=== PATIENT | female | born 1985 | race African-American/Black ===

== ENCOUNTER 2019-11-24 09:29 | Emergency (ER) | payer SELFPAY ==
[~2019-11-24] VITALS: Ht 162.6 cm; Wt 46.7 kg
[2019-11-24] MEDS ORDERED: MORPHINE SULFATE 10 MG/ML VIAL. IV STA ×2 (09:36→11:07)
[2019-11-24] MEDS ORDERED: LIDOCAINE 2% 20 ML VIAL. INH STA (09:36)
[2019-11-24] MEDS ORDERED: ONDANSETRON PF 4 MG/2 ML VIAL. IV ONE (09:45)
[2019-11-24] MEDS ORDERED: IV NORMAL SALINE 1000ML BAG 1,000 ML IV ONE (09:45)
--- NOTE | 2019-11-24 09:45 | PHYS DOC ---
Adult General HPI HPI Patient is a 34 year old female who presents with multiple complaints. The patient states that she's started having chest pain yesterday. The patient also states she's been a cough, fever, runny nose, congestion, bodyaches ongoing for weeks. The patient states she has a history of a pulmonary embolus and stop taking her blood thinners for an unknown reason 4 months ago. Rates her pain as 10 out of 10 in severity and sharp. Review of Systems Review of Systems Constitutional: Reports fever or chills [] Eyes: Denies change in visual acuity, redness, or eye pain [] HENT: Reports nasal congestion and runny nose. Respiratory: Reports cough and shortness of breath. Cardiovascular: No additional information not addressed in HPI [] GI: Denies abdominal pain, nausea, vomiting, bloody stools or diarrhea [] : Denies dysuria or hematuria [] Musculoskeletal: Denies back pain or joint pain [] Integument: Denies rash or skin lesions [] Neurologic: Denies headache, focal weakness or sensory changes [] Endocrine: Denies polyuria or polydipsia [] Complete systems were reviewed and found to be within normal limits, except as documented in this note. Current Medications Current Medications Current Medications Medications (Trade) Dose Ordered Sig/Medhat Start Time Stop Time Status Last Admin Dose Admin Iohexol (Omnipaque 350 Mg/ml) 75 ml 1X ONCE 11/24/19 10:30 11/24/19 10:31 DC 11/24/19 10:46 75 ML Lidocaine HCl 5 ml 1X STAT 11/24/19 09:36 11/24/19 09:48 DC 11/24/19 10:03 5 ML Morphine Sulfate (Morphine Sulfate) 5 mg 1X STAT 11/24/19 11:07 11/24/19 11:13 DC Ondansetron HCl (Zofran) 4 mg 1X ONCE 11/24/19 09:45 11/24/19 09:48 DC 11/24/19 09:53 4 MG Sodium Chloride 1,000 ml @ 1,000 mls/hr 1X ONCE 11/24/19 09:45 11/24/19 10:44 DC 11/24/19 09:52 1,000 MLS/HR Allergies Allergies Allergies Coded Allergies Type Severity Reaction Last Updated Verified enoxaparin Allergy Unknown 11/24/19 Yes Physical Exam Physical Exam Constitutional: Well developed, well nourished, no acute distress, non-toxic appearance. [] HENT: Normocephalic, atraumatic, bilateral external ears normal, oropharynx moist, no oral exudates, nose normal. [] Eyes: PERRLA, EOMI, conjunctiva normal, no discharge. [] Neck: Normal range of motion, no tenderness, supple, no stridor. [] Cardiovascular:Heart rate regular rhythm but tachycardia, no murmur, chest tenderness on palpation to left side of chest. Lungs & Thorax: Bilateral breath sounds clear to auscultation [] Abdomen: Bowel sounds normal, soft, no tenderness, no masses, no pulsatile masses. [] Skin: Warm, dry, no erythema, no rash. [] Neurologic: Alert and oriented X 3, normal motor function, normal sensory function, no focal deficits noted. [] Psychologic: Affect normal, judgement normal, mood normal. [] Current Patient Data Vital Signs Vital Signs Date Time Temp Pulse Resp B/P (MAP) Pulse Ox O2 Delivery O2 Flow Rate FiO2 11/24/19 10:04 99 Room Air 11/24/19 09:54 18 11/24/19 09:43 98.9 110 144/94 (111) 98.9 Lab Values Laboratory Tests Test 11/24/19 09:44 11/24/19 10:48 11/24/19 10:53 White Blood Count 12.9 x10^3/uL (4.0-11.0) H Red Blood Count 4.29 x10^6/uL (3.50-5.40) Hemoglobin 12.4 g/dL (12.0-15.5) Hematocrit 37.8 % (36.0-47.0) Mean Corpuscular Volume 88 fL (79-100) Mean Corpuscular Hemoglobin 29 pg (25-35) Mean Corpuscular Hemoglobin Concent 33 g/dL (31-37) Red Cell Distribution Width 13.8 % (11.5-14.5) Platelet Count 484 x10^3/uL (140-400) H Neutrophils (%) (Auto) 68 % (31-73) Lymphocytes (%) (Auto) 18 % (24-48) L Monocytes (%) (Auto) 13 % (0-9) H Eosinophils (%) (Auto) 0 % (0-3) Basophils (%) (Auto) 1 % (0-3) Neutrophils # (Auto) 8.8 x10^3/uL (1.8-7.7) H Lymphocytes # (Auto) 2.3 x10^3/uL (1.0-4.8) Monocytes # (Auto) 1.7 x10^3/uL (0.0-1.1) H Eosinophils # (Auto) 0.0 x10^3/uL (0.0-0.7) Basophils # (Auto) 0.1 x10^3/uL (0.0-0.2) Prothrombin Time 15.5 SEC (11.7-14.0) H Prothrombin Time INR 1.3 (0.8-1.1) H Activated Partial Thromboplast Time 34 SEC (24-38) Sodium Level 136 mmol/L (136-145) Potassium Level 4.5 mmol/L (3.5-5.1) Chloride Level 103 mmol/L (98-107) Carbon Dioxide Level 24 mmol/L (21-32) Anion Gap 9 (6-14) Blood Urea Nitrogen 8 mg/dL (7-20) Creatinine 0.8 mg/dL (0.6-1.0) Estimated GFR (Cockcroft-Gault) 81.2 BUN/Creatinine Ratio 10 (6-20) Glucose Level 86 mg/dL (70-99) Calcium Level 9.4 mg/dL (8.5-10.1) Magnesium Level 1.9 mg/dL (1.8-2.4) Total Bilirubin 0.4 mg/dL (0.2-1.0) Aspartate Amino Transferase (AST) 16 U/L (15-37) Alanine Aminotransferase (ALT) 19 U/L (14-59) Alkaline Phosphatase 66 U/L (46-116) Troponin I Quantitative < 0.017 ng/mL (0.000-0.055) Total Protein 7.7 g/dL (6.4-8.2) Albumin 2.9 g/dL (3.4-5.0) L Albumin/Globulin Ratio 0.6 (1.0-1.7) L Ethyl Alcohol Level < 10 mg/dL (0-10) Urine Collection Type Unknown Urine Color Mona Urine Clarity Clear Urine pH 5.5 Urine Specific [place] >=1.030 Urine Protein 30 mg/dL (NEG-TRACE) Urine Glucose (UA) Negative mg/dL (NEG) Urine Ketones (Stick) Trace mg/dL (NEG) Urine Blood Trace (NEG) Urine Nitrite Negative (NEG) Urine Bilirubin Negative (NEG) Urine Urobilinogen Dipstick 0.2 mg/dL (0.2 mg/dL) Urine Leukocyte Esterase Small (NEG) Urine RBC 3-5 /HPF (0-2) Urine WBC 1-4 /HPF (0-4) Urine Squamous Epithelial Cells Many /LPF Urine Bacteria Few /HPF (0-FEW) Urine Mucus Marked /LPF Urine Opiates Screen Pos (NEG) Urine Methadone Screen Neg (NEG) Urine Barbiturates Neg (NEG) Urine Phencyclidine Screen Neg (NEG) Urine Amphetamine/Methamphetamine Neg (NEG) Urine Benzodiazepines Screen Neg (NEG) Urine Cocaine Screen Neg (NEG) Urine Cannabinoids Screen Pos (NEG) Urine Ethyl Alcohol Neg (NEG) Influenza Type A Antigen Negative (NEGATIVE) Influenza Type B Antigen Negative (NEGATIVE) POC Urine HCG, Qualitative Hcg negative (Negative) Laboratory Tests 11/24/19 09:44 Laboratory Tests 11/24/19 09:44 EKG EKG EKG interpreted by Dr. Ramos Sinus tachycardia with rate of 101. NO STEMI. Radiology/Procedures Radiology/Procedures [id number] [place] [address] IMAGING REPORT Signed PATIENT: SUDHIR BLACK ACCOUNT: [id number] : 1985 LOCATION: ER AGE: 34 SEX: F EXAM STATUS: PRE ER ORD. PHYSICIAN: ULI MENESES APRN REASON: chest pain, SOA x2 weeks PROCEDURE: CHEST PA & LATERAL CHEST PA LATERAL History: Shortness of air for 2 weeks, chest pain Comparison: None. Findings: 2 views of the chest are submitted. There is infiltrate left lung base, also minimally at the right lung base. There is no significant dependent pleural fluid or pneumothorax. Heart size is within normal limits. Impression: 1. There are left greater than right, bibasilar infiltrates. Electronically signed by: Doris Rhoades MD (11/24/2019 10:29 AM) [id number] DICTATED and SIGNED BY: DORIS RHOADES MD DATE: 11/24/19 1029 [][facility] [address] [place] [address] IMAGING REPORT Signed PATIENT: SUDHIR BLACK RACCOUNT: [id number] : 1985 LOCATION: ER AGE: 34 SEX: F EXAM STATUS: PRE ER ORD. PHYSICIAN: ULI MENESES APRN REASON: tachycardia, CP, SOB, Hx of PE, stopped taking blood thinners PROCEDURE: CT ANGIOGRAPHY CHEST EXAM: CT ANGIOGRAPHY OF THE CHEST WITH AND WITHOUT CONTRAST. HISTORY: Tachycardia, chest pain, shortness of breath. TECHNIQUE: Computed tomographic angiography of the chest was performed before and after the intravenous administration of iodinated contrast. 3-D maximum intensity projections were also performed. One or more of the following individualized dose reduction techniques were utilized for this examination: 1. Automated exposure control. 2. Adjustment of the mA and/or kV according to patient size. 3. Use of iterative reconstruction technique. COMPARISON: None. FINDINGS: Images of the upper abdomen reveal no acute abnormality. Bone windows reveal no suspicious lesions. No pulmonary emboli are identified. There is no aortic dissection or aneurysm. There are airspace infiltrates in both lower lobes inferiorly. There are lesser similar infiltrates in the right middle lobe and left upper lobe. There are scattered debris within the lower lobe bronchi. There is bronchial wall thickening predominantly inferiorly. A left hilar lymph node measures 1.6 x 1.2 cm. A left paraesophageal or inferior hilar node measures 1.6 x 1.6 cm. Subcarinal lymph nodes are also prominent. There is no pleural or pericardial effusion. The heart is not enlarged. IMPRESSION: 1. Basilar predominant multifocal pneumonia as above. Debris within the lower lobe bronchi may reflect uncleared secretions or aspiration. 2. Mediastinal adenopathy is likely reactive in this setting. This could be followed to resolution if there is persistent concern. 3. No pulmonary embolism. Electronically signed by: Ramon Sharpe MD (11/24/2019 10:55 AM) [facility] DICTATED and SIGNED BY: ANA SHARPE MD DATE: 11/24/19 1055 Course & Med Decision Making Course & Med Decision Making Pertinent Labs and Imaging studies reviewed. (See chart for details) Will get CT angio due to history and the tachycardia and chest pain the patient is having. Will also get chest x-ray, labs, Flu test, UA, drug screen, and will also give supportive care. Labs show slightly elevated WBC count at 12.9. Urine has small leukocytes. Will treat for UTI. Imaging shows pneumonia. Will treat with Doxycycline. Dragon Disclaimer Dragon Disclaimer This electronic medical record was generated, in whole or in part, using a voice recognition dictation system. Departure Departure Impression: Primary Impression: Pneumonia Additional Impression: Urinary tract infection Disposition: HOME, SELF-CARE Condition: STABLE Patient Instructions: Pneumonia, Adult, Urinary Tract Infection Additional Instructions: Thank you for visiting [facility]. We appreciate you trusting us with your care. If any additional problems come up don't hesitate to return to visit us. Please follow up with your primary care provider so they can plan additional care if needed and know about the problem that you had. If symptoms worsen come back to the Emergency Department. Any concerning symptoms that start such as chest pain, shortness of air, weakness or numbness on one side of the body, running high fevers or any other concerning symptoms return to the ER. You have been prescribed an antibiotic today to help fight your infection. Please take all of the antibiotic as directed. If after 48 hours the infection is not improving, please return for more care. If the infection worsens, return to ER for additional care. Scripts Doxycycline Hyclate (DOXYCYCLINE HYCLATE) 100 Mg Capsule 1 CAP PO BID for 10 Days, #20 CAP Prov: ULI MENESES APRN 11/24/19 Cephalexin (KEFLEX) 500 Mg Capsule 1 CAP PO BID for 7 Days, #14 CAP 0 Refills Prov: ULI MENESES APRN 11/24/19 Problem Qualifiers Primary Impression: Pneumonia Pneumonia type: due to unspecified organism Laterality: bilateral Lung location: unspecified part of lung Qualified Codes: J18.9 - Pneumonia, unspecified organism Additional Impression: Urinary tract infection Urinary tract infection type: acute cystitis Hematuria presence: without hematuria Qualified Codes: N30.00 - Acute cystitis without hematuria ULI MENESES APRN Nov 24, 2019 09:45
[2019-11-24 09:54] LABS: BASO # 0.1 x10^3/uL (0.0-0.2); BASO % 1 % (0-3); EOS % 0 % (0-3); HEMATOCRIT 37.8 % (36.0-47.0); HEMOGLOBIN 12.4 g/dL (12.0-15.5); LYMPH # 2.3 x10^3/uL (1.0-4.8); LYMPH % 18 % (24-48); MEAN CORPUSCULAR HEMOGLOBIN 29 pg (25-35); MEAN CORPUSCULAR HGB CONC 33 g/dL (31-37); MEAN CORPUSCULAR VOLUME 88 fL (79-100); MONO # 1.7 x10^3/uL (0.0-1.1); MONO % 13 % (0-9); NEUT # 8.8 x10^3/uL (1.8-7.7); NEUT % 68 % (31-73); PLATELET COUNT 484 x10^3/uL (140-400); RED BLOOD COUNT 4.29 x10^6/uL (3.50-5.40); RED CELL DISTRIBUTION WIDTH 13.8 % (11.5-14.5); WHITE BLOOD COUNT 12.9 x10^3/uL (4.0-11.0)
[2019-11-24 10:03] LABS: PROTHROMBIN TIME PATIENT 15.5 SEC (11.7-14.0)
[2019-11-24 10:05] LABS: CALCIUM 9.4 mg/dL (8.5-10.1); CREATININE 0.8 mg/dL (0.6-1.0); GFR 81.2; POTASSIUM 4.5 mmol/L (3.5-5.1)
[2019-11-24 10:10] LABS: ALBUMIN 2.9 g/dL (3.4-5.0); ALBUMIN/GLOBULIN RATIO 0.6 (1.0-1.7); MAGNESIUM 1.9 mg/dL (1.8-2.4); TOTAL BILIRUBIN 0.4 mg/dL (0.2-1.0); TOTAL PROTEIN 7.7 g/dL (6.4-8.2)
[2019-11-24] MEDS ORDERED: IOHEXOL 350 MG/ML 100 ML VIAL. IV ONE (10:30)
--- NOTE | 2019-11-24 10:31 | RAD ---
CHEST PA LATERAL History: Shortness of air for 2 weeks, chest pain Comparison: None. Findings: 2 views of the chest are submitted. There is infiltrate left lung base, also minimally at the right lung base. There is no significant dependent pleural fluid or pneumothorax. Heart size is within normal limits. Impression: 1. There are left greater than right, bibasilar infiltrates. Electronically signed by: Jose Carpenter MD (11/24/2019 10:29 AM) [id number]
--- NOTE | 2019-11-24 10:46 | EKG ---
[facility] [address] [place] [address] Test Date: 2019-11-24 Test Time: 09:34:31 Pat Name: SUDHIR BLACK Department: Room: Gender: F [employer]: : 1985 Requested By: ULI MENESES Order Number: [id number] Reading MD: Measurements Intervals [place] Rate: 100 P: 65 NC: 130 QRS: 62 QRSD: 78 T: 57 QT: 322 QTc: 418 Interpretive Statements SINUS TACHYCARDIA NON SPECIFIC ST-T ABNORMALITY (ELEVATION) OTHERWISE NORMAL ECG No previous ECG available for comparison
--- NOTE | 2019-11-24 10:58 | RAD ---
EXAM: CT ANGIOGRAPHY OF THE CHEST WITH AND WITHOUT CONTRAST. HISTORY: Tachycardia, chest pain, shortness of breath. TECHNIQUE: Computed tomographic angiography of the chest was performed before and after the intravenous administration of iodinated contrast. 3-D maximum intensity projections were also performed. One or more of the following individualized dose reduction techniques were utilized for this examination: 1. Automated exposure control. 2. Adjustment of the mA and/or kV according to patient size. 3. Use of iterative reconstruction technique. COMPARISON: None. FINDINGS: Images of the upper abdomen reveal no acute abnormality. Bone windows reveal no suspicious lesions. No pulmonary emboli are identified. There is no aortic dissection or aneurysm. There are airspace infiltrates in both lower lobes inferiorly. There are lesser similar infiltrates in the right middle lobe and left upper lobe. There are scattered debris within the lower lobe bronchi. There is bronchial wall thickening predominantly inferiorly. A left hilar lymph node measures 1.6 x 1.2 cm. A left paraesophageal or inferior hilar node measures 1.6 x 1.6 cm. Subcarinal lymph nodes are also prominent. There is no pleural or pericardial effusion. The heart is not enlarged. IMPRESSION: 1. Basilar predominant multifocal pneumonia as above. Debris within the lower lobe bronchi may reflect uncleared secretions or aspiration. 2. Mediastinal adenopathy is likely reactive in this setting. This could be followed to resolution if there is persistent concern. 3. No pulmonary embolism. Electronically signed by: Ramon Sharpe MD (11/24/2019 10:55 AM) [facility]
[2019-11-24 11:06] LABS: BILIRUBIN,URINE NEGATIVE (NEG); CLARITY,URINE CLEAR; COLOR,URINE AMBER; NITRITE,URINE NEGATIVE (NEG); PH,URINE 5.5; PROTEIN,URINE 30 mg/dL (NEG-TRACE); UROBILINOGEN,URINE 0.2 mg/dL (0.2 mg/dL)
[2019-11-24 11:12] LABS: BARBITURATES NEG (NEG); BENZODIAZEPINES NEG (NEG); CANNABINOIDS POS (NEG); COCAINE NEG (NEG); METHADONE NEG (NEG); OPIATES POS (NEG); PHENCYCLIDINE NEG (NEG)
[2019-11-24 11:13] LABS: AMPHETAMINE/METHAMPHETAMINE NEG (NEG)
[2019-11-24 11:16] LABS: BACTERIA,URINE FEW /HPF (0-FEW); SQUAMOUS EPITHELIAL CELL,UR MANY /LPF
[2019-11-24 11:28] LABS: INFLUENZA A PATIENT NEGATIVE (NEGATIVE); INFLUENZA B PATIENT NEGATIVE (NEGATIVE)
[2019-11-24] MEDS ORDERED: DOXY100C2 PO (11:35)
[2019-11-24] MEDS ORDERED: CEPH-264 PO (11:35)
[2019-11-24 11:58] VITALS: BP 122/86
== END 2019-11-24 12:20 | disposition home or self-care (01) ==
LOC: ER 09:29
DX: J18.9 Pneumonia, unspecified organism (principal); N30.00 Acute cystitis without hematuria; R07.89 Other chest pain; R50.9 Fever, unspecified; R09.89 Other specified symptoms and signs involving the circulatory and respiratory systems; Z88.1 Allergy status to other antibiotic agents
CPT/HCPCS: 36415; 71046; 71275; 80053; 80307; 81001; 81025; 83735; 84484; 85025; 85610; 85730; 87086; 87804; 93005; 94640; 96374; 96375; 99285; G0480; J2001; J2270; J2405; J7030; Q9967